=== PATIENT | male | born 1960 | race Caucasian/White ===

== ENCOUNTER 2020-01-27 07:57 | Emergency (ER) | payer OTHER ==
[~2020-01-27] VITALS: Ht 182.9 cm; Wt 82.6 kg
[~2020-01-27 07:57] MED LIST: ATORVASTATIN CA20 MG PO; FENOFIBRATE145 MG PO; LOSARTAN-HCTZ1 EAC2 PO; NABUMETONE500 MG PO; PERCOCET 5/3251 TAB PO
== END 2020-01-27 09:25 | disposition home or self-care (01) ==
LOC: ER 07:57
DX: R07.89 Other chest pain (principal)

== ENCOUNTER 2020-05-31 03:14 | Emergency (ER) | payer OTHER ==
[~2020-05-31] VITALS: Ht 185.4 cm; Wt 93.0 kg
[2020-05-31] MEDS ORDERED: MECLIZINE HCL25 MG PO (06:46)
== END 2020-05-31 07:05 ==
LOC: ER 03:14
DX: I16.0 Hypertensive urgency (principal); R42 Dizziness and giddiness

== ENCOUNTER 2022-12-08 17:21 | Emergency (ER) | payer OTHER ==
[~2022-12-08] VITALS: Ht 188 cm; Wt 88.5 kg
[~2022-12-08 17:21] MED LIST changes: +MECLIZINE HCL25 MG PO
== END 2022-12-08 20:52 | disposition home or self-care (01) ==
LOC: ER 17:21
DX: R07.89 Other chest pain (principal); R03.0 Elevated blood-pressure reading, without diagnosis of hypertension

== ENCOUNTER → 2025-01-13 | Emergency (ER) | payer OTHER | END | disposition home or self-care (01) | LOC: ER 07:12 | DX: I10 Essential (primary) hypertension (principal) ==